=== PATIENT | male | born 2000 | race African-American/Black ===

== ENCOUNTER 2018-10-04 18:03 | Emergency (ER) | payer OTHER ==
[~2018-10-04] VITALS: Ht 180.3 cm; Wt 88.8 kg
[2018-10-04 18:10] VITALS: BP 110/71
[2018-10-04] MEDS ORDERED: CEFTRIAXONE 250 MG IM ONE (18:30)
[2018-10-04] MEDS ORDERED: AZITHROMYCIN 250 MG TABLET PO ONE (18:30)
[2018-10-04] MEDS ORDERED: CEFTRIAXONE 250 MG ONE (19:27)
[2018-10-04] MEDS ORDERED: LIDOCAINE-MPF 1%, 5ML ONE (19:28)
[2018-10-04] MEDS ORDERED: AZITHROMYCIN 250 MG TABLET ONE (19:28)
== END 2018-10-04 19:48 | disposition home or self-care (01) ==
LOC: ED 19:35
DX: N34.1 Nonspecific urethritis (principal)
CPT/HCPCS: 87491; 87591; 96372; 99283; J0696

== ENCOUNTER 2018-11-25 20:44 | Emergency (ER) | payer MEDICAID ==
[~2018-11-25] VITALS: Ht 177.8 cm; Wt 87.1 kg
[2018-11-25 20:55] VITALS: BP 106/59
[2018-11-25] MEDS ORDERED: CEFTRIAXONE 250 MG ONE (21:12)
[2018-11-25] MEDS ORDERED: AZITHROMYCIN 500 MG TABLET ONE (21:12)
[2018-11-25] MEDS ORDERED: AZITHROMYCIN 250 MG TABLET PO ONE (21:30)
[2018-11-25] MEDS ORDERED: CEFTRIAXONE 250 MG IM ONE (21:30)
--- NOTE | 2018-11-25 21:32 | NUR ---
SBAR report received from [facility].
--- NOTE | 2018-11-25 21:33 | NUR ---
URINE SAMPLE PROVIDED BY PT, SENT TO LAB
[2018-11-25 21:41] LABS: MICROSCOPIC NOT IND
[2018-11-25 21:45] LABS: CULTURE INDICATED? NO
--- NOTE | 2018-11-25 22:26 | NUR ---
Patient/Caregiver given discharge instructions and they have confirmed that they understand the instructions. Patient ambulatory with steady gait.
== END 2018-11-25 22:27 | disposition home or self-care (01) ==
LOC: ED 22:16
DX: A56.01 Chlamydial cystitis and urethritis (principal); A54.01 Gonococcal cystitis and urethritis, unspecified; J45.909 Unspecified asthma, uncomplicated
CPT/HCPCS: 81003; 87491; 87591; 96372; 99283; J0696

== ENCOUNTER 2020-05-26 13:40 | Emergency (ER) | payer MEDICAID ==
[2020-05-26 13:43] VITALS: BP 133/65
== END 2020-05-26 15:17 | disposition home or self-care (01) ==
LOC: ED 15:11
DX: K08.89 Other specified disorders of teeth and supporting structures (principal); F17.200 Nicotine dependence, unspecified, uncomplicated
CPT/HCPCS: 99283